=== PATIENT | male | born 1980 | race Caucasian/White ===

== ENCOUNTER 2020-11-24 14:14 | Emergency (ER) | payer OTHER, SELFPAY ==
--- NOTE | ~2020-11-24 | XR_ITS ---
EXAMINATION: XR knee LT min 4V DATE: 11/24/2020 14:46 INDICATION: Left knee pain TECHNIQUE: Four views of the left knee were obtained. COMPARISON: None. FINDINGS: Alignment is normal. No fracture or osteochondral lesion. There is mild tricompartmental os teoarthritis characterized by tiny marginal osteophytes. No joint effusion/synovitis. Soft tissues a re unremarkable. IMPRESSION: 1. No acute osseous abnormality. Reviewed, dictated and finalized at location A.
[2020-11-24 14:20] VITALS: BP 134/86; PULSE 87; RESP 20; TEMP 36.5; O2SAT 98
--- NOTE | 2020-11-24 14:20 | ED.LOWEXIN ---
HPI - Extremity Injury (Lower) General Chief Complaint: Extremity Injury, Lower Stated Complaint: left knee pain Time Seen by Provider: 11/24/20 14:21 Source: patient and RN notes reviewed History of Present Illness HPI Narrative: Patient is a 40-year-old male who presents the urgent care with complaints of left knee pain. Patient states is been bothering him for approximately 1 year in the last 3 months of been much worse. Patient states that he had the same issue with his right knee a few years prior, came to our facility, and was treated with a steroid. Patient states that it eliminated the pain immediately . It was noted that patient was seen at our facility in 2019. Patient states that he ended up with a meniscal tear and never had a procedure to correct the injury. 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 Patient states that he is on Suboxone and does not wish to take anything for pain. Patient has not taken anything for pain prior to arrival. Patient denies of any new known injuries, trauma or fall to the knees. No other acute complaints. No acute distress noted. Patient aware of the plan of care. Some parts of this dictation were generated by voice recognition software and may contain typographical and/or grammatical inaccuracies. Related Data Home Medications Medication Instructions Recorded Confirmed buprenorphine-naloxone [Suboxone] 8 film SUBLINGUAL DAILY 11/24/20 11/24/20 Allergies Allergy/AdvReac Type Severity Reaction Status Date / Time No Known Allergies Allergy Verified 11/24/20 14:28 Review of Systems Review of Systems: Narrative: CONSTITUTIONAL: Denies fever, chills, or sweats. EYES: Denies visual changes, redness, or discharge. ENT: Denies rhinorrhea, congestion, sore throat, or otalgia. CARDIOVASCULAR: Denies chest pain, palpitations, or edema. RESPIRATORY: Denies cough or dyspnea. GASTROINTESTINAL: Denies abdominal pain, nausea, vomiting, or diarrhea. GENITOURINARY: Denies dysuria or hematuria. SKIN: Denies rash or itching. MUSCULOSKELETAL: Reports of left knee pain NEUROLOGIC: Denies headache, numbness, or weakness. All other systems reviewed are negative, except as documented in HPI. PMFSH Comments At the time of my signature, I reviewed and agree with the nursing past medical, surgical, social, and family history. There is no relevant family history pertinent to the patient complaint. Exam Narrative: Exam Narrative: GENERAL: This is a well-nourished, well-developed patient, in no apparent distress. HEAD: normocephalic, atraumatic. EYES: PERRL. Sclera clear/white. Vision is grossly intact. EARS: External ears normal NOSE: External nose normal with no obvious nasal discharge, nares without redness, no rhinorrhea. THROAT: Mucous membranes moist NECK: Neck supple SKIN: warm, intact with no suspicious lesions or rash, good texture and turgor. NEURO: awake, alert, and oriented to person, place and time. There were no obvious focal neurologic abnormalities. EXTREMITIES: No obvious deformity/ecchymosis/erythema/edema/dislocation to the left knee. Positive strong left pedal pulse with capillary refill less than 2 seconds. Negative drawer test. Pain to anterior joint spaces with palpation, with left leg extended Course Vital Signs Vital signs: Vital Signs Temperature 97.7 F 11/24/20 14:20 Pulse Rate 87 11/24/20 14:20 Respiratory Rate 20 11/24/20 14:20 Blood Pressure 134/86 11/24/20 14:20 Pulse Oximetry 98 11/24/20 14:20 Temperature 97.7 F 11/24/20 14:20 Pulse Rate 87 11/24/20 14:20 Respiratory Rate 20 11/24/20 14:20 Blood Pressure 134/86 11/24/20 14:20 Pulse Oximetry 98 11/24/20 14:20 Reviewed MDM - Extremity Injury (Lower) MDM Narrative Medical decision making narrative: Reviewed x-ray results with the patient. He is aware that x-ray was negative for a
== END 2020-11-24 15:05 | disposition home or self-care (01) ==
PROVIDERS: Emergency Provider Nurse Practitioner Family
DX: M17.11 Unilateral primary osteoarthritis, right knee (principal)
CPT/HCPCS: 73564; 99213; G0463